=== PATIENT | male | born 1945 | race Caucasian/White ===

== ENCOUNTER 2017-08-15 20:34 | Emergency (ER) | payer MEDICARE, OTHER ==
[~2017-08-15] VITALS: Ht 172.7 cm; Wt 76.9 kg
[2017-08-15 21:04] LABS: BASOPHILS % (AUTO) 0.6 % (0-1); EOSINOPHILS # (AUTO) 0.1 X10'3 (0-0.9); EOSINOPHILS % (AUTO) 1.4 % (0-6); HEMATOCRIT 34.8 % (42.0-52.0); HEMOGLOBIN 11.7 g/dl (14.0-17.9); LYMPHOCYTES # (AUTO) 0.6 X10'3 (1.1-4.8); LYMPHOCYTES % (AUTO) 11.3 % (21-51); MEAN CORPUSCULAR HEMOGLOBIN 30.3 PG (27.0-31.0); MEAN CORPUSCULAR HGB CONC 33.5 % (33.0-36.5); MEAN CORPUSCULAR VOLUME 90.2 FL (78-98); MEAN PLATELET VOLUME 8.7 FL (7.4-10.4); MONOCYTES # (AUTO) 0.9 X10'3 (0-0.9); MONOCYTES % (AUTO) 15.5 % (2-12); NEUTROPHILS # (AUTO) 3.9 X10'3 (1.8-7.7); NEUTROPHILS % (AUTO) 71.2 % (42-75); PLATELET COUNT 185 X10'3 (140-440); RED BLOOD COUNT 3.85 X10'6 (4.70-6.10); RED CELL DISTRIBUTION WIDTH 13.9 % (11.5-14.5); WHITE BLOOD COUNT 5.5 X10'3 (4.5-11.0)
[2017-08-15] MEDS ORDERED: propofol 10mg/ml 20ml vial IV ONE (21:05)
[2017-08-15 21:15] LABS: PARTIAL THROMBOPLASTIN TIME 28 SECONDS (22-32); PROTHROMBIN TIME 10.6 SECONDS (9.0-12.0)
[2017-08-15] MEDS ORDERED: oseltamivir phos 75mg capsule PO ONE (21:15)
[2017-08-15 21:19] LABS: ALANINE AMINOTRANSFERASE 24 U/L (12-78); ALBUMIN 3.8 G/DL (3.4-5.0); ALBUMIN/GLOBULIN RATIO 1.1 (1.1-1.5); ALKALINE PHOSPHATASE 60 IU/L (46-116); ANION GAP 7 (8-16); ASPARTATE AMINO TRANSFERASE 22 U/L (10-37); BILIRUBIN,TOTAL 0.5 MG/DL (0.1-1.0); BLOOD UREA NITROGEN 23 MG/DL (7-18); BUN/CREATININE RATIO 18.9 (5.4-32.0); CALCIUM 9.4 MG/DL (8.5-10.1); CHLORIDE 101 MMOL/L (99-107); CREATININE 1.22 MG/DL (0.60-1.10); GLUCOSE 169 MG/DL (70-104); MAGNESIUM 1.4 MG/DL (1.5-2.4); POTASSIUM 4.2 MMOL/L (3.5-5.1); SODIUM 136 MMOL/L (135-145); TOTAL CARBON DIOXIDE 27.7 MMOL/L (24-32); TOTAL PROTEIN 7.2 G/DL (6.4-8.2); eGFR 59 ML/MIN
[2017-08-15] MEDS ORDERED: TAM75C PO (22:07)
[2017-08-15 23:26] VITALS: BP 119/74
== END 2017-08-15 23:29 | disposition home or self-care (01) ==
LOC: ER 20:35
DX: I48.91 Unspecified atrial fibrillation (principal); J11.1 Influenza due to unidentified influenza virus with other respiratory manifestations; I25.10 Atherosclerotic heart disease of native coronary artery without angina pectoris; I10 Essential (primary) hypertension; E11.9 Type 2 diabetes mellitus without complications; E78.00 Pure hypercholesterolemia, unspecified; G89.29 Other chronic pain; Z88.8 Allergy status to other drugs, medicaments and biological substances; Z79.899 Other long term (current) drug therapy
CPT/HCPCS: 36415; 71045; 80053; 83735; 84484; 85025; 85610; 85730; 92960; 93005; 94760; 99152; 99285; J2704; J7030

== ENCOUNTER 2018-07-04 12:53 | Emergency (ER) | payer MEDICARE, OTHER ==
[~2018-07-04] VITALS: Ht 172.7 cm; Wt 75.0 kg
[~2018-07-04 12:53] MED LIST: AMLO-94 PO; APIX5TAB3 PO; EZET10TA13 PO; FERR-119 PO; HYDR4TAB45 PO; LINA5TAB4 PO; MAGN400C PO; METF-438 PO; MULT-38 PO; NIAC-34 PO; OMEG1CAP13 PO; PREG150C PO; SOTA80TA PO; TURM500C7 PO; VITA1CAP PO
[2018-07-04] MEDS ORDERED: diltiazem 5mg/ml 5ml inj. IV ONE (13:30)
[2018-07-04 13:42] LABS: BASOPHILS # (AUTO) 0.1 X10'3 (0-0.2); BASOPHILS % (AUTO) 0.8 % (0-1); EOSINOPHILS # (AUTO) 0.1 X10'3 (0-0.9); EOSINOPHILS % (AUTO) 1.6 % (0-6); HEMATOCRIT 36.1 % (42.0-52.0); HEMOGLOBIN 11.9 g/dl (14.0-17.9); LYMPHOCYTES # (AUTO) 1.4 X10'3 (1.1-4.8); MEAN CORPUSCULAR HGB CONC 32.8 % (33.0-36.5); MEAN CORPUSCULAR VOLUME 91.4 FL (78-98); MEAN PLATELET VOLUME 9.5 FL (7.4-10.4); MONOCYTES # (AUTO) 0.5 X10'3 (0-0.9); MONOCYTES % (AUTO) 6.8 % (2-12); NEUTROPHILS # (AUTO) 4.7 X10'3 (1.8-7.7); NEUTROPHILS % (AUTO) 69.8 % (42-75); PLATELET COUNT 198 X10'3 (140-440); RED BLOOD COUNT 3.95 X10'6 (4.70-6.10); RED CELL DISTRIBUTION WIDTH 14.1 % (11.5-14.5); WHITE BLOOD COUNT 6.7 X10'3 (4.5-11.0)
[2018-07-04 13:57] LABS: ALANINE AMINOTRANSFERASE 18 U/L (12-78); ALBUMIN 3.6 G/DL (3.4-5.0); ALBUMIN/GLOBULIN RATIO 1.1 (1.1-1.5); ALKALINE PHOSPHATASE 58 IU/L (46-116); ANION GAP 9 (8-16); ASPARTATE AMINO TRANSFERASE 15 U/L (10-37); BILIRUBIN,TOTAL 0.5 MG/DL (0.1-1.0); BLOOD UREA NITROGEN 21 MG/DL (7-18); BUN/CREATININE RATIO 16.4 (5.4-32.0); CALCIUM 8.6 MG/DL (8.5-10.1); CHLORIDE 102 MMOL/L (99-107); CREATININE 1.28 MG/DL (0.60-1.10); GLUCOSE 210 MG/DL (70-104); POTASSIUM 4.2 MMOL/L (3.5-5.1); SODIUM 136 MMOL/L (135-145); TOTAL CARBON DIOXIDE 25.5 MMOL/L (24-32); TOTAL PROTEIN 6.8 G/DL (6.4-8.2); eGFR 55 ML/MIN
[2018-07-04] MEDS ORDERED: normal saline 1000ML IV soln IVB ONE (14:15)
[2018-07-04 14:18] LABS: INR 1.1 INR; PARTIAL THROMBOPLASTIN TIME 30 SECONDS (22-32); PROTHROMBIN TIME 10.7 SECONDS (9.0-12.0)
[2018-07-04 15:28] VITALS: BP 116/66
== END 2018-07-04 15:29 | disposition home or self-care (01) ==
LOC: ER 12:53
DX: E86.0 Dehydration (principal); I48.91 Unspecified atrial fibrillation; I25.10 Atherosclerotic heart disease of native coronary artery without angina pectoris; I10 Essential (primary) hypertension; E11.9 Type 2 diabetes mellitus without complications; Z88.8 Allergy status to other drugs, medicaments and biological substances; Z79.899 Other long term (current) drug therapy
CPT/HCPCS: 36415; 71045; 80053; 83880; 84484; 85025; 85610; 85730; 93005; 96374; 99284; J7030; J3490

== ENCOUNTER 2018-09-01 10:33 | Day surgery (SDC) | payer MEDICARE ==
[2018-08-31 12:27] LABS: BASOPHILS % (AUTO) 0.5 % (0-1); EOSINOPHILS # (AUTO) 0.1 X10'3 (0-0.9); HEMATOCRIT 40.7 % (42.0-52.0); HEMOGLOBIN 13.4 g/dl (14.0-17.9); LYMPHOCYTES # (AUTO) 1.6 X10'3 (1.1-4.8); LYMPHOCYTES % (AUTO) 21.8 % (21-51); MEAN CORPUSCULAR HEMOGLOBIN 30.3 PG (27.0-31.0); MEAN CORPUSCULAR HGB CONC 32.9 % (33.0-36.5); MEAN CORPUSCULAR VOLUME 92.1 FL (78-98); MEAN PLATELET VOLUME 9.3 FL (7.4-10.4); MONOCYTES # (AUTO) 0.4 X10'3 (0-0.9); MONOCYTES % (AUTO) 5.9 % (2-12); NEUTROPHILS % (AUTO) 69.8 % (42-75); PLATELET COUNT 253 X10'3 (140-440); RED BLOOD COUNT 4.42 X10'6 (4.70-6.10); RED CELL DISTRIBUTION WIDTH 14.2 % (11.5-14.5); WHITE BLOOD COUNT 7.1 X10'3 (4.5-11.0)
[2018-08-31 12:38] LABS: PROTHROMBIN TIME 10.2 SECONDS (9.0-12.0)
[2018-08-31 12:39] LABS: ALBUMIN 3.9 G/DL (3.4-5.0); ANION GAP 10 (8-16); BLOOD UREA NITROGEN 24 MG/DL (7-18); BUN/CREATININE RATIO 18.2 (5.4-32.0); CALCIUM 8.8 MG/DL (8.5-10.1); CHLORIDE 102 MMOL/L (99-107); CREATININE 1.32 MG/DL (0.60-1.10); GLUCOSE 172 MG/DL (70-104); POTASSIUM 5.5 MMOL/L (3.5-5.1); SODIUM 138 MMOL/L (135-145); TOTAL CARBON DIOXIDE 26.3 MMOL/L (24-32); eGFR 53 ML/MIN
[2018-09-01] VITALS (13 sets, daily range): BP systolic 96–114; BP diastolic 58–74
[~2018-09-01] VITALS: Ht 172.7 cm; Wt 73.3 kg
[2018-09-01] MEDS ORDERED: LORazepam 0.5 MG tablet PO ONE (10:55)
[2018-09-01] MEDS ORDERED: diphenhydrAMINE 25mg capsule PO ONE (10:55)
[2018-09-01] MEDS ORDERED: atropine 0.1mg/ml 10ml syringe IV ONE (10:55)
[2018-09-01] MEDS ORDERED: amiodarone in dextrose, iso-osm 150mg/100ml bag IV ONE (10:55)
[2018-09-01] MEDS ORDERED: MIDAZolam 5mg/ml 2ml vial IV ONE (10:55)
[2018-09-01] MEDS ORDERED: normal saline 1000ml 1,000 ML IV SCH (10:55)
[2018-09-01] MEDS ORDERED: morphine 10mg/ml inj. IV ONE (10:55)
[2018-09-01] MEDS ORDERED: DIGO125T PO (11:01)
[2018-09-01] MEDS ORDERED: NITR0.4T51 SL (11:01)
== END 2018-09-01 15:10 | disposition home or self-care (01) ==
LOC: SSTAY O 10:33
PROVIDERS: ATTEND Internal Medicine Cardiovascular Disease
DX: I48.91 Unspecified atrial fibrillation (principal); I10 Essential (primary) hypertension; E78.5 Hyperlipidemia, unspecified; I25.10 Atherosclerotic heart disease of native coronary artery without angina pectoris; G47.30 Sleep apnea, unspecified; E11.9 Type 2 diabetes mellitus without complications; M19.90 Unspecified osteoarthritis, unspecified site; E66.9 Obesity, unspecified; Z79.899 Other long term (current) drug therapy; Z98.52 Vasectomy status; Z96.651 Presence of right artificial knee joint; Z98.890 Other specified postprocedural states
CPT/HCPCS: 36415; 80048; 82948; 85025; 85610; 92960; 93005; J0282; J0461; J2250; J2270; J7030; Q0163

== ENCOUNTER 2022-03-11 03:21 | Emergency (ER) | payer MEDICARE ==
[~2022-03-11] VITALS: Ht 172.7 cm; Wt 70.5 kg
[~2022-03-11 03:21] MED LIST changes: +AMLO-139 PO; -AMLO-94 PO; +DIGO125T PO; -EZET10TA13 PO; -MAGN400C PO; +NITR0.4T51 SL; +ZET10T PO
[2022-03-11] MEDS ORDERED: diphenhydrAMINE 50 mg/ml inj IV ONE (05:05)
[2022-03-11] MEDS ORDERED: normal saline 1000ml 1,000 ML IV ONE (05:05)
[2022-03-11] MEDS ORDERED: albuterol 2.5 MG/3 ML nebule NEB ONE (05:05)
[2022-03-11] MEDS ORDERED: predniSONE 20 mg tablet PO ONE (05:05)
[2022-03-11 05:58] LABS: BASOPHILS % (AUTO) 0.2 % (0-1); EOSINOPHILS % (AUTO) 0.1 % (0-6); HEMATOCRIT 36.3 % (42.0-52.0); MEAN CORPUSCULAR HEMOGLOBIN 30.1 PG (27.0-31.0); MEAN CORPUSCULAR HGB CONC 33.1 g/dL (33.0-36.5); MEAN CORPUSCULAR VOLUME 90.8 FL (78-98); MEAN PLATELET VOLUME 9.4 FL (7.4-10.4); MONOCYTES # (AUTO) 0.3 X10'3 (0-0.9); MONOCYTES % (AUTO) 2.2 % (2-12); NEUTROPHILS # (AUTO) 11.5 X10'3 (1.8-7.7); NEUTROPHILS % (AUTO) 89.5 % (42-75); PLATELET COUNT 224 X10'3 (140-440); RED BLOOD COUNT 3.99 X10'6 (4.70-6.10); RED CELL DISTRIBUTION WIDTH 14.3 % (11.5-14.5); WHITE BLOOD COUNT 12.9 X10'3 (4.5-11.0)
[2022-03-11 06:04] LABS: ALANINE AMINOTRANSFERASE 19 U/L (12-78); ALBUMIN 3.3 G/DL (3.4-5.0); ALKALINE PHOSPHATASE 66 IU/L (46-116); ANION GAP 9 (8-16); ASPARTATE AMINO TRANSFERASE 15 U/L (10-37); BILIRUBIN,TOTAL 0.5 MG/DL (0.1-1.0); BLOOD UREA NITROGEN 27 MG/DL (7-18); BUN/CREATININE RATIO 15.3 (5.4-32.0); CALCIUM 8.6 MG/DL (8.5-10.1); CHLORIDE 107 MMOL/L (99-107); CREATININE 1.76 MG/DL (0.60-1.10); GLUCOSE 162 MG/DL (70-104); POTASSIUM 3.7 MMOL/L (3.5-5.1); SODIUM 141 MMOL/L (135-145); TOTAL CARBON DIOXIDE 25.4 MMOL/L (24-32); TOTAL PROTEIN 6.6 G/DL (6.4-8.2); eGFR 38 ML/MIN
[2022-03-11 06:12] LABS: MAGNESIUM 1.6 MG/DL (1.5-2.4)
--- NOTE | 2022-03-11 06:21 | NUR ---
Per day shift RN EKG canceled by NADYA JORDAN
[2022-03-11] MEDS ORDERED: iohexol 350MG/ML 100ml bottle IV ONE (07:51)
[2022-03-11] MEDS ORDERED: MESSAGE TO NURSING PO NR (08:00)
--- NOTE | 2022-03-11 08:08 | NUR ---
trop 180 reported to ER
[2022-03-11] MEDS ORDERED: EPIN0.3P3 IM (10:04)
[2022-03-11] MEDS ORDERED: triamcinolone acetonide 40mg/ml inj IM ONE (10:05)
[2022-03-11 10:47] VITALS: BP 104/61
== END 2022-03-11 10:52 | disposition home or self-care (01) ==
LOC: ER 03:22
DX: L50.0 Allergic urticaria (principal); R42 Dizziness and giddiness; R07.89 Other chest pain; I11.9 Hypertensive heart disease without heart failure; E11.9 Type 2 diabetes mellitus without complications; Z88.8 Allergy status to other drugs, medicaments and biological substances; Z79.899 Other long term (current) drug therapy
CPT/HCPCS: 36415; 71045; 71275; 74177; 80053; 83735; 83880; 84484; 85025; 85379; 93005; 94640; 96361; 96372; 96374; 99285; J1200; J3301; J3490; J7030; J7512; Q9967; 94760; 96375

== ENCOUNTER 2024-07-06 10:33 | Outpatient (CLI) | payer MEDICARE ==
[~2024-07-06 10:33] MED LIST changes: +EPIN0.3P3 IM; +EZET10TA7 PO; +OMEG-5 PO; -OMEG1CAP13 PO; -ZET10T PO
[2024-07-06 11:08] LABS: TOTAL HEMOGLOBIN 10.2 G/dl (13.5-17.5)
[2024-07-06 11:45] VITALS: PULSE 47; RESP 15; O2SAT 96
== END 2024-07-06 23:59 | disposition home or self-care (01) ==
LOC: RT 10:33
PROVIDERS: ATTEND Internal Medicine Cardiovascular Disease
DX: R06.02 Shortness of breath (principal); Z79.899 Other long term (current) drug therapy
CPT/HCPCS: 85018; 94010; 94727; 94729; 94760